=== PATIENT | female | born 1995 | race Caucasian/White ===

== ENCOUNTER 2016-12-08 20:11 | Emergency (ER) | payer OTHER ==
[~2016-12-08] VITALS: Ht 162.6 cm; Wt 90.9 kg
[2016-12-08 20:32] VITALS: BP 137/90; PULSE 82; RESP 16; O2SAT 100
--- NOTE | 2016-12-08 22:15 | DRSVH ---
PROCEDURE: CT BRAIN WITHOUT CONTRAST ([id number]) INDICATIONS: trauma TECHNIQUE: Noncontrast 4.5 mm thick angled axial sections acquired from the foramen magnum to the vertex, with c oronal reformats. COMPARISON: None. FINDINGS: Image quality: Excellent. CSF spaces: Basal cisterns are patent. No extra-axial fluid collections. Ventricles are normal in size and shape. Brain: No intracranial hemorrhage, mass, or mass effect. Mcdonnell-white matter interface is preserved. Skull and face: Calvarium and visualized facial bones are intact, without suspicious lesions. Sinuses: Visualized sinuses and mastoids are clear. IMPRESSION: 1. No acute intracranial abnormality. Dictated by: Xavier Amanda M.D. on 12/08/2016 at 22:08 Approved by: Xavier Amanda M.D. on 12/08/2016 at 22:13
--- NOTE | 2016-12-08 22:30 | ED.REPORT ---
HPI-Trauma Minor / Fall Date of Service December 08, 2016 ED Provider: Daniel Mills MD Patient is a 21 year old female with a history of chronic migraines presents to the ED complaining of headache that began earlier this evening. Patient was reportedly exiting her vehicle when she lifted herself up hitting the back of her head. Associated symptom includes vertigo, fatigue and nausea. She denies LOC, visual disturbances, weakness or vomiting. She denies any previous concussions. Nursing Notes Stated Complaint: HEAD INJURY/DIZZINESS Chief Complaint: Head, Face, Neck Trauma Nursing Notes Reviewed: Yes Allergies: Coded Allergies: Penicillins (Verified Allergy, Severe, Anaphylaxis, 12/08/16) amoxicillin (Verified Allergy, Severe, Anaphylaxis, 12/08/16) Uncoded Allergies: SULFA (Allergy, Severe, 12/08/16) General Time Seen by MD: 21:12 Chief Complaint Head injury Hx Obtained From: Patient Arrived By: Walk-in Onset Occurred: 1 - 4 hours ago Symptom Duration: Since onset Location: Head Quality: Aching Severity: Current: Mild Severity: Maximum: Moderate Associated with: Reports: Headache, Nausea, Denies: Loss of consciousness, Vomiting Additional Notes: Fatigue Pertinent Negative: Pt denies other symptoms Recent Healthcare: No recent doctor visit, No recent hospitalization Risk Factors Head CT Imaging Inclusion Criteria: >/= 16 yo age Presentation w/in 24 hrs. Past Medical History Past Medical History None reported. Past Surgical History None reported. Family History Noncontributory Smoking History Unknown if Ever Smoker Social History Other Social History: Good social support, Local resident Occupation [employer] employee Ambulatory Status Independent Review of Systems Constitutional: Reports: Fatigue Neurologic: Reports: Dizziness, Headache, Lightheaded (Vertigo ), Denies: Change LOC, Confusion, Vision change, Weakness Complete sys rev & neg: except as marked. GI: Reports: Nausea, Denies: Vomiting Physical Exam Initial Vital Signs Vital Signs (First) Date Time Temp Pulse Resp B/P Pulse Ox O2 Delivery O2 Flow Rate FiO2 12/08/16 20:32 36.3 82 16 137/90 100 Room Air Initial VS: Reviewed Extremities: Vascular intact, Neuro intact, No swelling (No calf swelling) , No tenderness (No calf tenderness) Skin: Warm, Dry, No cyanosis Neurologic: Alert, Oriented, Nonfocal Psychiatric: Mood/affect normal, Behavior normal, Normal thought content General/Constitutional: Awake, Alert, No acute distress, Well appearing, Well developed GENERAL: Speaking in full sentences Neck: Atraumatic, Supple, Full range of motion Head / Eyes: Atraumatic (No facial trauma), Normocephalic, PERRL Head / Scalp Abnl: Positive: Scalp tender occipital L, Scalp tender occipital R , Negative: Shunt palpable HEAD: No palpable deformity ENT: Atraumatic (No intraoral trauma), Airway patent, Mucous membranes moist, Pharynx NL Respiratory / Chest: Atraumatic, Breath sounds NL, Breath sounds = bilat, No respiratory distress Cardiovascular: Heart rate NL, Regular rhythm, Heart sounds NL, No gallop, No murmurs, No rubs, Peripheral circulation NL, Pulses = bilaterally Abdomen: Atraumatic, Soft, Non-tender, No distention Neurologic: Oriented X3, Speech NL, No motor deficits, No sensory deficits, CN II - XII intact, Reflexes equal bilat Focal Weakness: Negative: Pronator drift L, Pronator drift R Interpretation & Diagnostics Lab Results Interpretation Test 12/08/16 21:51 Hold Urine Received (Received) Point of Care Testing: Preg test neg - urine CT Head Interpretation IMPRESSION: 1. No acute intracranial abnormality. Dictated by: Xavier Amanda M.D. on 12/08/2016 at 22:08 Study: Head CT no contrast Interpretation / Wet Read by: Interpret - ED physician Re-Eval/Medical Decision Med Decision/Clinical Course Patient is a 21 year old female with a history of chronic migraines presents to the ED complaining of headache that began earlier this evening. Patient was reportedly exiting her vehicle when she lifted herself up hitting the back of her head. Associated symptom includes vertigo, fatigue and nausea. She denies LOC, visual disturbances, weakness or vomiting. She denies any previous concussions. Here in the emergency department the patient is afebrile stable vital signs and examination as above. negative CT head IMPRESSION: 1. No acute intracranial abnormality. Presentation consistent with mild postconcussive syndrome. Discussed concussive precautions and "brain rest" reviewed in detail with patient. Advised to take tomorrow off work. Return immediately for severe headache, confusion, weakness, vomiting or other concerning signs or symptoms. Neurologic examination at this time completely unremarkable. Prior to discharge follow-up and return precautions were reviewed in detail with the patient who verbalized understanding and agreement with the plan. The patient was discharged in stable condition. Re-Evaluation/Progress : Time of Eval: 22:34 Patient Status: Condition improved Re-Evaluation/Progress Note: Patient and her family are informed of her results and diagnosis. She is given concussion precautions and instructions. All questions are addressed. Counseled Regarding: Diagnosis, Lab results, Need for follow-up, When/why to return to ED Discharge & Departure Impression: Primary Impression: Concussion Encounter type: initial encounter Loss of consciousness presence/duration: without LOC Qualified Code: S06.0X0A - Concussion without loss of consciousness, initial encounter Additional Impressions: Head trauma Encounter type: initial encounter Qualified Code: S09.90XA - Unspecified injury of head, initial encounter Headache Headache type: unspecified Headache chronicity pattern: unspecified pattern Intractability: not intractable Qualified Code: R51 - Headache Disposition: Home Discharge Condition All VS Reviewed: Yes Condition: Improved Patient Instructions: Concussion (ED), Head Injury (ED) Additional Instructions: Thank you for seeking care at the emergency room. It is difficult for us to make definitive diagnoses in the ED but we believe that you are experiencing a mild concussion. I highly recommend that you take a "brain break" and avoid any brain straining acitivties including watching TV, reading a book, or other high sensory symptoms. Our primary goal today in the ED was to evaluate you for any life-threatening conditions. Your evaluation was reassuring. You should follow-up with your primary doctor in the next week. You should return to the ED immediately if you develop confusion, worsening headache, vomiting, blurred vision, lightheadedness, weakness or any other concerning signs or symptoms. Thank you for letting us partake in your care today. Referrals: [facility] Scribe Attestation Portions of this note were transcribed by John Pascal. I, Dr. Mills personally performed the history, physical exam and medical decision-making; I reviewed and confirmed the accuracy of the information in the transcribed note. Signed by: Jerrell Bañuelos, 12/08/16 [id number]. Daniel Mills MD December 08, 2016 22:30 JOHN PASCAL December 08, 2016 22:37
[2016-12-08 22:46] VITALS: BP 130/88; PULSE 80; RESP 16; O2SAT 99
== END 2016-12-08 22:40 | disposition home or self-care (01) ==
LOC: SED 20:11
DX: S06.0X0A Concussion without loss of consciousness, initial encounter (principal); W22.8XXA Striking against or struck by other objects, initial encounter; Y93.89 Activity, other specified; Y92.89 Other specified places as the place of occurrence of the external cause; Y99.8 Other external cause status; Z88.0 Allergy status to penicillin; Z88.1 Allergy status to other antibiotic agents